=== PATIENT | female | born 1945 | race Caucasian/White ===

== ENCOUNTER 2016-09-29 14:13 | Emergency (ER) | payer BC, OTHER ==
[~2016-09-29] VITALS: Ht 165.1 cm; Wt 48.1 kg
[2016-09-29] MEDS ORDERED: SIMVASTATIN PO (14:24)
[2016-09-29] MEDS ORDERED: ASPI81TA31 PO (14:24)
[2016-09-29] MEDS ORDERED: PRILOSEC PO (14:24)
[2016-09-29] MEDS ORDERED: VITAMIN D PO (14:24)
[2016-09-29] MEDS ORDERED: ATEN25TA PO (14:24)
--- NOTE | 2016-09-29 14:28 | NUR ---
PT IS IN ROOM #1B. DR ARIAS EVALUATED BY PT.
[2016-09-29] MEDS ORDERED: IV NORMAL SALINE 1000 ML BAG IV ONE (14:45)
[2016-09-29] MEDS ORDERED: ONDANSETRON 4 MG/2 ML VIAL IV ONE (14:45)
[2016-09-29 15:05] LABS: BASOPHILS % (AUTO) 0.6 % (0.0-2.0); EOSINOPHILS # (AUTO) 0.1 K/uL (0.0-0.7); EOSINOPHILS % (AUTO) 0.7 % (0.0-7.0); HEMATOCRIT 38.5 % (37-47); LYMPHOCYTES # (AUTO) 2.2 K/UL (0.8-4.8); LYMPHOCYTES % (AUTO) 29.1 % (20.5-51.5); MEAN CORPUSCULAR HGB CONC 34 g/dL (32.0-37.0); MEAN CORPUSCULAR VOLUME 91.8 FL (81.0-99.0); MONOCYTES # (AUTO) 0.4 K/UL (0.1-1.30); MONOCYTES % (AUTO) 5.2 % (0.0-11.0); NEUTROPHILS % (AUTO) 64.4 % (38.5-71.5); PLATELET COUNT (AUTO) 222 K/UL (150-450); RED BLOOD CELL COUNT(AUTO) 4.19 MIL/UL (4.2-5.4); WHITE BLOOD COUNT (AUTO) 7.7 K/UL (4.0-11.2)
[2016-09-29 15:11] LABS: CREATININE 0.9 mg/dL (0.6-1.3); POTASSIUM 4.1 mmol/L (3.5-5.1)
[2016-09-29 15:17] LABS: BILIRUBIN,DIRECT 0.1 mg/dL (0.0-0.2); BILIRUBIN,TOTAL 0.4 mg/dL (0.2-1.0); TOTAL PROTEIN, SERUM 7.7 g/dL (6.4-8.2)
[2016-09-29] MEDS ORDERED: ONDANSETRON 4 MG/2 ML VIAL ONE (15:22)
--- NOTE | 2016-09-29 17:34 | NUR ---
[facility] WAS CALLED BY RN. TALKED TO LINK MACHINE OPERATOR. DR ARIAS IS READY TO TALK DO [facility] DOCTOR.
--- NOTE | 2016-09-29 17:52 | NUR ---
[facility] PALEOLOGIST, DR XIAO TALKED TO DR ARIAS. PT IS ACCEPTED FOR TRANSFER TO [facility]. CASE # [id number].
--- NOTE | 2016-09-29 18:59 | NUR ---
REPORT WAS GIVEN TO OPERATIONS CONSULTANT RN.
--- NOTE | 2016-09-29 19:21 | NUR ---
Received report from KASIE Villalta. Assumed care of pt at this time. Pt resting in position of comfort for self. Resp even and unlabored. No complaints at this time. Cont waiting [facility] transfer assignment
--- NOTE | 2016-09-29 19:45 | NUR ---
[facility] CALLED BACK WITH TRANSFER IN. PATIENT WILL BE GOING TO [facility] ROOM 4056A . ACCEPTING MD IS DR YAN. ETA 1HR
--- NOTE | 2016-09-29 20:57 | NUR ---
Report called to KASIE Bello at [facility]. Ambulance at bedside to transfer pt to [place]
== END 2016-09-29 21:10 | disposition short-term general hospital (02) ==
LOC: ER 14:13
DX: R55 Syncope and collapse (principal); I10 Essential (primary) hypertension; E78.00 Pure hypercholesterolemia, unspecified; K21.9 Gastro-esophageal reflux disease without esophagitis; Z79.82 Long term (current) use of aspirin; Z88.0 Allergy status to penicillin; Z88.2 Allergy status to sulfonamides
CPT/HCPCS: 36415; 70030-TC; 70450; 71010; 85025; 93005; A4663; J2405; J7030

== ENCOUNTER 2018-05-26 13:47 | Emergency (ER) | payer OTHER ==
[~2018-05-26] VITALS: Ht 165.1 cm; Wt 46.3 kg
[~2018-05-26 13:47] MED LIST: ASPI81TA31 PO; ATEN25TA PO; PRILOSEC PO; SIMVASTATIN PO; VITAMIN D PO
[2018-05-26] MEDS ORDERED: IV NORMAL SALINE 500 ML BAG IV ONE (14:15)
[2018-05-26 14:21] LABS: BASOPHILS % (AUTO) 0.7 % (0.0-2.0); EOSINOPHILS % (AUTO) 0.6 % (0.0-7.0); HEMATOCRIT 38.5 % (31.2-41.9); HEMOGLOBIN 12.7 g/dL (10.9-14.3); LYMPHOCYTES # (AUTO) 1.8 K/uL (20.0-40.0); MEAN CORPUSCULAR HEMOGLOBIN 31.3 uug (24.7-32.8); MEAN CORPUSCULAR HGB CONC 33 g/dL (32.3-35.6); MEAN CORPUSCULAR VOLUME 94.6 fL (75.5-95.3); MONOCYTES # (AUTO) 0.4 K/uL (2.0-10.0); MONOCYTES % (AUTO) 6.3 % (0.0-11.0); NEUTROPHILS # (AUTO) 3.4 K/uL (1.8-8.9); NEUTROPHILS % (AUTO) 60.4 % (38.5-71.5); PLATELET COUNT (AUTO) 186 K/uL (179-408); RED BLOOD CELL COUNT(AUTO) 4.07 MIL/uL (3.63-4.92); WHITE BLOOD COUNT (AUTO) 5.6 K/uL (3.8-11.8)
--- NOTE | 2018-05-26 14:24 | NUR ---
Patienrt ambulated to bathroom with steady gait, for CT scan & chest x-ray@this time
[2018-05-26 14:30] LABS: CARBON DIOXIDE 27 mmol/L (21-32); CHLORIDE 102 mmol/L (98-107); CREATININE 0.9 mg/dL (0.6-1.3); GLUCOSE 100 mg/dL (74-106); UREA NITROGEN, BLOOD 20 mg/dL (7-18)
[2018-05-26 14:35] LABS: *BILIRUBIN,URIN NEGATIVE (NEGATIVE); *CLARITY,URINE CLEAR (CLEAR); *COLOR,URINE YELLOW (YELLOW); *KETONES,URINE NEGATIVE (NEGATIVE); *UROBILINOGEN,URINE 0.2 E.U./dl (NORMAL); LEUKOCYTE ESTERASE ,URINE NEGATIVE (NEGATIVE); NITRITE, URINE NEGATIVE (NEGATIVE); PH,URINE 6.5 (5.0-8.0); UGLUCOSE NEGATIVE (NEGATIVE)
[2018-05-26 14:36] LABS: ALANINE AMINOTRANSFERASE 28 U/L (14-59); ALKALINE PHOSPHATASE 52 U/L (50-136); ASPARTATE AMINOTRANSFERASE 22 U/L (15-37); BILIRUBIN,TOTAL 0.4 mg/dL (0.2-1.0); LIPASE 158 U/L (73-393); TOTAL PROTEIN, SERUM 7.9 g/dL (6.4-8.2)
[2018-05-26 14:43] LABS: *BLOOD, URINE TRACE (NEGATIVE)
[2018-05-26 14:44] LABS: MUCUS,URINE FEW /LPF (0-FEW); SQUAMOUS EPITHELIAL CELL,UR FEW /HPF (NONE SEEN); WBC,URINE 0-3 /HPF (0-3)
[2018-05-26 15:01] LABS: BILIRUBIN,DIRECT 0.1 mg/dL (0.0-0.2)
--- NOTE | 2018-05-26 16:07 | NUR ---
IV removed@1601. Catheter intact and site benign. Pressure and 4x4 gauze applied to site. No bleeding noted. Patient discharged to home in stable conditon & brisk steady gait. Written and verbal after care instructions given to patient and family. Patient and family verbalized understanding of instructions. Copies of all tests' results were given to patient.
== END 2018-05-26 16:09 | disposition home or self-care (01) ==
LOC: ER 13:47
DX: R42 Dizziness and giddiness (principal); I10 Essential (primary) hypertension; E78.5 Hyperlipidemia, unspecified; K21.9 Gastro-esophageal reflux disease without esophagitis; Z88.0 Allergy status to penicillin; Z88.2 Allergy status to sulfonamides; Z79.82 Long term (current) use of aspirin; Z79.899 Other long term (current) drug therapy; Z86.73 Personal history of transient ischemic attack (TIA), and cerebral infarction without residual deficits
CPT/HCPCS: 36415; 70030-TC; 70450; 71045; 83690; 85025; 85730; 87086; 93005; A4663; J7040